=== PATIENT | male | born 1950 | race Hispanic/Latino ===

== ENCOUNTER 2021-07-17 03:44 | Emergency (ER) | payer MEDICARE, BC ==
[~2021-07-17] VITALS: Ht 167.6 cm; Wt 102.1 kg
[~2021-07-17 03:44] MED LIST: FLAGYL250 MG PO; FLONASE; IBUPROFEN PO
[2021-07-17] MEDS ORDERED: LIDOCAINE 4% PATCH TP SCH (04:00)
[2021-07-17] MEDS ORDERED: KETOROLAC TROMETHAMINE 30 MG/ML VIAL IM STA (04:00)
[2021-07-17] MEDS ORDERED: LIDOCAINE 4% PATCH TP ONE (04:14)
[2021-07-17 04:28] LABS: CLARITY,URINE CLEAR (CLEAR); COLOR,URINE YELLOW (YELLOW); KETONES,URINE NEGATIVE (NEGATIVE); LEUKOCYTE ESTERASE ,URINE NEGATIVE (NEGATIVE); NITRITE,URINE NEGATIVE (NEGATIVE); PROTEIN,URINE DIPSTICK 1+ (NEGATIVE); URINE UROBILINOGEN 4 mg/dL (0.2 - 1)
[2021-07-17 04:34] LABS: WBC,URINE (MAN) 0-5 /HPF (0-5)
[2021-07-17 04:35] LABS: BACTERIA,URINE FEW /HPF; EPITHELIAL CELLS,URINE FEW /LPF
[2021-07-17 04:44] VITALS: BP 129/63
[2021-07-17] MEDS ORDERED: MORPHINE SULFAT15 MG PO (04:44)
[2021-07-17] MEDS ORDERED: ONDANSETRON ODT4 MG PO (04:45)
[2021-07-17] MEDS ORDERED: FLOMAX0.4 MG PO (04:45)
== END 2021-07-17 04:56 | disposition home or self-care (01) ==
LOC: ER 03:52
DX: R30.0 Dysuria (principal); R10.9 Unspecified abdominal pain; E11.9 Type 2 diabetes mellitus without complications; K21.9 Gastro-esophageal reflux disease without esophagitis; Z87.442 Personal history of urinary calculi
CPT/HCPCS: 74176; 81001; 99283; J1885

== ENCOUNTER → 2021-12-28 | Day surgery (SDC) | payer MEDICARE, BC ==
[2021-12-23 11:04] LABS: BASOPHILS % 0.6 % (0.0-1.0); EOSINOPHILS # (AUTO) 0.2 (0.0-0.4); HEMATOCRIT 44.9 % (38.2-49.6); LYMPHOCYTES # (AUTO) 1.7 (1.0-3.2); LYMPHOCYTES % 33.7 % (18.0-39.1); MEAN CORPUSCULAR HEMOGLOBIN 30.8 pg (28-32); MEAN CORPUSCULAR HGB CONC 33.4 g/dL (31-35); MEAN CORPUSCULAR VOLUME 92.2 fL (81-99); MONOCYTES # (AUTO) 0.8 (0.2-0.8); MONOCYTES % 15.1 % (4.4-11.3); NEUTROPHILS # (AUTO) 2.4 (2.1-6.9); NEUTROPHILS % 47.2 % (38.7-80.0); PLATELET COUNT 167 x10e3/uL (140-360); RED BLOOD COUNT 4.87 x10e6/uL (4.3-5.7); RED CELL DISTRIBUTION WIDTH 12.6 % (11.7-14.4)
[~2021-12-28] MED LIST changes: +COMBIGAN EYE DRO5 ML OP; +FENTANYL CITRATE/PF 100MCG/2 ML INJ ONE; +FLOMAX0.4 MG PO; +GLUTATHIONE25 GM; +HYOSCYAMINE SULFATE 0.5 MG/ML INJ ONE; +METFORMIN HCL500 MG PO; +MIDAZOLAM HCL 2 MG/2 ML VIAL ONE; +MORPHINE SULFAT15 MG PO; +N-ACETYL-L-CYS600 MG; +ONDANSETRON ODT4 MG PO; +POVIDONE IODINE 0.05% 0.05 % ML PO ONE; +PROPOFOL IV EMULSION 10 MG/ML 20 ML VIAL ONE; +VITAMIN C1000 M2; +VITAMIN D31 GM; +ZINC
[2021-12-28 16:35] VITALS: BP 117/77
== END | disposition home or self-care (01) ==
LOC: ENDO 12:50
PROVIDERS: ATTEND Internal Medicine Gastroenterology
DX: K29.50 Unspecified chronic gastritis without bleeding (principal); K63.5 Polyp of colon; K31.7 Polyp of stomach and duodenum; K20.90 Esophagitis, unspecified without bleeding; K44.9 Diaphragmatic hernia without obstruction or gangrene; K57.30 Diverticulosis of large intestine without perforation or abscess without bleeding; K64.8 Other hemorrhoids; R19.7 Diarrhea, unspecified; Z71.3 Dietary counseling and surveillance; E11.9 Type 2 diabetes mellitus without complications; Z71.89 Other specified counseling; Z01.810 Encounter for preprocedural cardiovascular examination; Z01.812 Encounter for preprocedural laboratory examination; Z79.84 Long term (current) use of oral hypoglycemic drugs; Z68.35 Body mass index [BMI] 35.0-35.9, adult; Z85.46 Personal history of malignant neoplasm of prostate
CPT/HCPCS: 36415 ×2; 43239; 45380; 82948; 85025; 88304; 88305; 88312; 93005; C9113; J1980; J2250; J2704; J3010; 45378; 45384; 88342